=== PATIENT | female | born 1995 | race Two or more races ===

== ENCOUNTER 2023-08-21 23:55 | Observation (INO) | payer OTHER ==
[~2023-08-21] VITALS: Ht 160 cm; Wt 73.9 kg
[2023-08-22] MEDS ORDERED: PREN-96 PO (01:29)
[2023-08-22 01:34] LABS: Basophils # (auto) 0 10 ^3/uL (0-0.2); Basophils % (auto) 0.4 % (0.0-2.0); Eosinophils # (auto) 0.1 10 ^3/uL (0-0.8); Eosinophils % (auto) 0.9 % (0.0-7.0); Hematocrit 35.5 % (36.0-46.0); Lymphocytes # (auto) 2.2 10 ^3/uL (0.4-5.4); Lymphocytes % (auto) 25.8 % (10.0-50.0); Mean Corpuscular Hemoglobin 29.2 pg (28.0-32.0); Mean Corpuscular Hgb Conc. 33.7 g/dL (32.0-36.0); Mean Corpuscular Volume 86.7 fL (80.0-100.0); Monocytes # (auto) 0.6 10 ^3/uL (0-1.3); Monocytes % (auto) 7.1 % (0.0-12.0); Neutrophils # (auto) 5.5 10 ^3/uL (1.6-8.6); Neutrophils % (auto) 65.8 % (37.0-80.0); Nucleated Red Blood Cells % 0.1 %; Red Blood Cells 4.09 10^6/uL (4.0-5.20); Red Cell Distribution Width 14.5 % (11.8-14.3); White Blood Cell 8.3 10^3/uL (4.4-10.8)
[2023-08-22 01:42] LABS: Alanine Aminotransferase 12 U/L (7-40); Albumin 3.9 g/dL (3.2-4.8); Alkaline Phosphatase 219 U/L (46-116); Anion Gap 12 (5-15); Aspartate Aminotransferase 11 U/L (13-40); Bilirubin, Total 0.3 mg/dL (0.2-1.0); Carbon Dioxide 19 mmol/L (20-30); Chloride 107 mmol/L (98-107); Glucose 82 mg/dL (74-106); Potassium 3.1 mmol/L (3.5-5.1); Sodium 138 mmol/L (136-145); Total Protein 6.2 g/dL (5.7-8.2); Uric Acid 4.4 mg/dL (3.1-7.8)
[2023-08-22 01:47] LABS: BUN/Creatinine Ratio 10.2 (10.0-20.0); Blood Urea Nitrogen < 5 mg/dL (9-23)
[2023-08-22 01:51] LABS: Protein, Urine 10.9 mg/dL (0.0-11.9)
[2023-08-22 01:53] LABS: INR 0.92 (0.9-1.15); Partial Thromboplastin Time 28.8 SEC (24.5-34.5); Prothrombin Time 9.7 sec (9.3-11.8)
[2023-08-22 01:54] LABS: Creatinine, Urine 33.83 mg/dL (30.0-125.0); Urine Protein/Creatinine Ratio 0.32
[2023-08-22 02:21] LABS: Urine Bacteria MANY /hpf (None Seen); Urine Blood Negative /uL (Negative); Urine Clarity Clear (Clear); Urine Color Colorless (Yellow); Urine Protein, UAD Negative (Negative); Urine Specific Gravity 1.006 (1.001-1.035); Urine Urobilinogen Normal (Negative); Urine WBC 1 /hpf (0 - 5); Urine pH 6.5 (5.0-8.0)
[2023-08-23] MEDS ORDERED: OMEG600C2 PO (02:29)
== END 2023-08-22 02:41 | disposition home or self-care (01) ==
LOC: LDRP 23:55
PROVIDERS: ADMIT Obstetrics & Gynecology; ATTEND Obstetrics & Gynecology
DX: O16.3 Unspecified maternal hypertension, third trimester (principal); O26.893 Other specified pregnancy related conditions, third trimester; M79.89 Other specified soft tissue disorders; R10.11 Right upper quadrant pain; R51.9 Headache, unspecified; Z3A.36 36 weeks gestation of pregnancy
CPT/HCPCS: 36415; 59025; 80053; 81001; 81002; 82570; 84156; 84550; 85025; 85362; 85610; 85730; 94760; G0378

== ENCOUNTER 2023-08-23 01:18 | Observation (INO) | payer OTHER ==
[~2023-08-23 01:18] MED LIST: PREN-96 PO
[2023-08-23] MEDS ORDERED: OMEG600C2 PO (02:29)
[2023-08-23 02:32] LABS: Fern Testing Negative
[2023-08-23 03:10] LABS: Urine Bacteria MOD /hpf (None Seen); Urine Blood Negative /uL (Negative); Urine Clarity Clear (Clear); Urine Color Colorless (Yellow); Urine Protein, UAD Negative (Negative); Urine Specific Gravity 1.009 (1.001-1.035); Urine Urobilinogen Normal (Negative); Urine WBC 1 /hpf (0 - 5)
== END 2023-08-23 03:45 | disposition home or self-care (01) ==
LOC: LDRP 01:18
PROVIDERS: ADMIT Obstetrics & Gynecology; ATTEND Obstetrics & Gynecology
DX: O23.43 Unspecified infection of urinary tract in pregnancy, third trimester (principal); O16.3 Unspecified maternal hypertension, third trimester; O42.913 Preterm premature rupture of membranes, unspecified as to length of time between rupture and onset of labor, third trimester; O26.893 Other specified pregnancy related conditions, third trimester; M79.89 Other specified soft tissue disorders; Z3A.36 36 weeks gestation of pregnancy
CPT/HCPCS: 59025; 76815; 81001; 81002; 84112; G0378; Q0114